=== PATIENT | female | born 1995 | race African-American/Black ===

== ENCOUNTER 2016-05-20 21:40 | Observation (INO) | payer BC ==
[2016-05-20 21:39] LABS: BASOPHILS 0.4 %; BASOPHILS ABSOLUTE 0.03 10/3/uL (0.0-0.16); EOSINOPHILS 0.8 %; EOSINOPHILS ABSOLUTE 0.06 10/3/uL (0.0-0.53); IMMATURE GRANULOCYTES 0.1 %; IMMATURE GRANULOCYTES ABSOLUTE 0.01 10/3/uL (0.0-0.11); LYMPHOCYTES 17.7 %; LYMPHOCYTES ABSOLUTE 1.34 10/3/uL (0.67-4.30); MEAN PLATELET VOLUME 8.8 fL (9.2-13.0); MONOCYTES 5.7 %; MONOCYTES ABSOLUTE 0.43 10/3/uL (0.21-1.20); NEUTROPHILS 75.3 %; NEUTROPHILS ABSOLUTE 5.72 10/3/uL (2.02-8.40); RED CELL COUNT 3.91 10/6/uL (4.0-5.6)
[2016-05-20 21:40] LABS: ER CBC TAT 0 Hrs 11 Mins; HEMATOCRIT 23.4 % (36.0-48.0); HEMOGLOBIN 6.8 g/dL (12.0-16.0); MEAN CORPUS HGB CONC 29.1 g/dL (32.0-36.0); MEAN CORPUSCULAR HEMOGLOB 17.4 pg (26.0-34.0); MEAN CORPUSCULAR VOLUME 59.8 fL (80-100); PLATELET COUNT 461 10/3/uL (150-400); RBC DISTRIBUTION WIDTH 19.7 % (12.0-16.0); WHITE BLOOD CELLS 7.6 10/3/uL (4.5-10.5)
[~2016-05-20 21:40] MED LIST: ADVIL PO; BACDS PO; BIRTH CONTROL PILL PO; HYDROCORT12 EX; IRON SUPPLEMENT PO; IRON325 MG PO; LO/OVRAL PO
[2016-05-20 21:41] LABS: MANUAL DIFF NO %
[2016-05-20 21:48] LABS: BUN (BLOOD UREA NITROGEN) 7 MG/DL (6-23); CALCIUM, SERUM 8.8 MG/DL (8.5-10.4); CHLORIDE, SERUM 106 MMOL/L (96-112); CO2 (CARBON DIOXIDE) 24 MMOL/L (24-34); CREATININE 0.54 MG/DL (0.55-1.02); GFR AFRICAN AMERICAN 156 ML/MIN (>=60); GFR NON AFRICAN AMERICAN 135 ML/MIN (>=60); GLUCOSE, SERUM 93 MG/DL (60-99); SODIUM, SERUM 140 MMOL/L (135-148)
[2016-05-20] MEDS ORDERED: *DENIES (22:02)
[2016-05-20 22:21] LABS: ANISOCYTOSIS 1+ (5-10/OIF) (0-5/OIF); HYPOCHROMIA 3+ (>30/OIF) (0-2/OIF); PLATELET ESTIMATE SLT INC (ADEQUATE)
[2016-05-20 22:22] LABS: ELLIPTOCYTES 1+ (3-10/OIF) (0-2/OIF)
[2016-05-20 22:23] LABS: RBC MORPHOLOGY ABN (NORMAL); TEARDROP SHAPED RBCS OCC (0-2/OIF)
[2016-05-20 23:31] LABS: ASCORBIC ACID (UR NOT ORDER) NEG (NEG); BILIRUBIN, URINE NEGATIVE (NEG); ER URINALYSIS TAT 0 Hrs 21 Mins; KETONE, URINE TRACE MG/DL (NEG); LEUKOCYTE ESTERASE(NOT OR TRACE (NEG); NITRITE (URINE) NEG (NEG); WBC (NOT ORDERED) (RFLEX) 2 (0-5)
[2016-05-20 23:50] LABS: HCG SERUM QUANTITATIVE 33726.3 IU/L (0-6)
[2016-05-21 00:08] LABS: CHLAMYDIA TRACH PCR NOT DETECTED (NOT DETEC); GC PCR NOT DETECTED (NOT DETECT); SOURCE: FEMALE URINE
[2016-05-21 01:30] LABS: FERRITIN 3 NG/ML (8-252); IRON, SERUM 13 MCG/DL (35-150)
[2016-05-21 07:17] LABS: BASOPHILS 0.4 %; BASOPHILS ABSOLUTE 0.03 10/3/uL (0.0-0.16); EOSINOPHILS 1.1 %; EOSINOPHILS ABSOLUTE 0.09 10/3/uL (0.0-0.53); HEMOGLOBIN 8.1 g/dL (12.0-16.0); IMMATURE GRANULOCYTES 0.2 %; IMMATURE GRANULOCYTES ABSOLUTE 0.02 10/3/uL (0.0-0.11); LYMPHOCYTES 22.1 %; LYMPHOCYTES ABSOLUTE 1.88 10/3/uL (0.67-4.30); MEAN PLATELET VOLUME 8.9 fL (9.2-13.0); MONOCYTES 7.9 %; MONOCYTES ABSOLUTE 0.67 10/3/uL (0.21-1.20); NEUTROPHILS 68.3 %; PLATELET COUNT 412 10/3/uL (150-400); RBC DISTRIBUTION WIDTH 23.5 % (12.0-16.0); RED CELL COUNT 4.17 10/6/uL (4.0-5.6); WHITE BLOOD CELLS 8.5 10/3/uL (4.5-10.5)
[2016-05-21 07:19] LABS: HEMATOCRIT 26.1 % (36.0-48.0); MANUAL DIFF NO %; MEAN CORPUSCULAR HEMOGLOB 19.4 pg (26.0-34.0); MEAN CORPUSCULAR VOLUME 62.6 fL (80-100)
[2016-05-21 08:21] LABS: HYPOCHROMIA 1+ (3-10/OIF) (0-2/OIF); MICROCYTES 4+ (>50/OIF) (0-5/OIF); PLATELET ESTIMATE SLT INC (ADEQUATE)
[2016-05-21] MEDS ORDERED: EZFE 200200 MG PO (14:10)
== END 2016-05-21 14:38 | disposition home or self-care (01) ==
LOC: ER 21:40 → CDU1 23:59 → CDU2 05-21 00:50
PROVIDERS: Nurse Practitioner Acute Care; Obstetrics & Gynecology
DX: O99.011 Anemia complicating pregnancy, first trimester (principal); I10 Essential (primary) hypertension
CPT/HCPCS: 36415; 36430; 76815; 80048; 81001; 82607; 82728; 83540; 84702; 84703; 85025; 86850; 86900; 86901; 86920; 87491; 87591; 99285; A9270-GY; G0378; P9016